=== PATIENT | female | born 1950 | race Caucasian/White ===

== ENCOUNTER 2017-07-27 09:42 | Day surgery (SDC) | payer OTHER ==
[2017-07-27] MEDS: BUPIVACAINE 0.5% (SDV) 30 ML INJ
[2017-07-27] MEDS: SODIUM CHLORIDE 0.9% 1L IRRIG IRR
[~2017-07-27 09:42] MED LIST: CEFAZOLIN 1 GM INJ; CEFAZOLIN 1 GM/50 ML (PMX) 50 ML IVPB; LIDOCAINE 2% (SDV) 5 ML INJ; METOCLOPRAMIDE 10 MG INJ; ONDANSETRON 4 MG INJ; PROPOFOL 200 MG INJ; SOD CHLORIDE 0.9% 1,000 ML IV
[2017-07-27] MEDS ORDERED: FENTAnyl 50 MCG/ML VIAL (10:57)
[2017-07-27] MEDS ORDERED: MIDAZOLAM 1 MG/ML 2 ML INJ (11:01)
[2017-07-27] MEDS ORDERED: DEXAMETHASONE 4 MG/ML 1 ML INJ (11:01)
[2017-07-27] MEDS ORDERED: SUGAMMADEX SODIUM 200 MG/2 ML VIAL IV (11:05)
[2017-07-27] MEDS ORDERED: SUCCINYLCHOLINE CHLORIDE 100 MG/5 ML SYG IV (11:05)
[2017-07-27] MEDS ORDERED: ROCURONIUM 50 MG INJ (11:05)
[2017-07-27] MEDS ORDERED: HYDROmorphONE 2 MG/ML SYG (11:20)
[2017-07-27] MEDS: HYDROCODONE/APAP (5/325) TAB PO (13:29)
[2017-07-27] MEDS ORDERED: ONDANSETRON 4 MG INJ IV (13:30)
[2017-07-27] MEDS ORDERED: KETOROLAC 30 MG INJ IV (13:30)
[2017-07-27] MEDS ORDERED: hydrALAzine 20 MG INJ IV (13:30)
[2017-07-27] MEDS ORDERED: MEPERIDINE 25 MG INJ IV (13:30)
[2017-07-27] MEDS ORDERED: HYDROmorphONE (0.2 MG/ML) 10ML SYG IV ×3 (13:30)
[2017-07-27] MEDS ORDERED: DIPHENHYDRAMINE 50 MG INJ IV (13:30)
[2017-07-27] MEDS ORDERED: LABETALOL HCL 20MG INJ IV (13:30)
[2017-07-27] MEDS ORDERED: ONDANSETRON 4 MG INJ (13:40)
[2017-07-27] MEDS ORDERED: MEPERIDINE 25 MG INJ (13:40)
== END 2017-07-27 14:34 | disposition home or self-care (01) ==
LOC: SDS 09:42
DX: K64.4 Residual hemorrhoidal skin tags (principal); K64.8 Other hemorrhoids
CPT/HCPCS: 46260; 88304

== ENCOUNTER 2017-08-02 14:47 | Emergency (ER) | payer OTHER ==
[2017-08-02] MEDS: NA PHOSPHATE/BIPHOS 133 ML ENEMA PR (16:44)
== END 2017-08-02 18:30 | disposition home or self-care (01) ==
LOC: FTE 14:47
DX: K59.00 Constipation, unspecified (principal)
CPT/HCPCS: 74019; 99284-25